=== PATIENT | female | born 1960 | race African-American/Black ===

== ENCOUNTER 2017-07-24 23:06 | Observation (INO) | payer OTHER ==
[~2017-07-24] VITALS: Ht 165.1 cm; Wt 120.0 kg
[~2017-07-24 23:06] MED LIST: Z.0.NO CURRENT MEDS
[2017-07-24 23:10] VITALS: BP_SYST 127; BP_SYST 150; BP_DIAS 66; PULSE 74; PULSE 82; RESP 18; RESP 21; TEMP 98.4; O2SAT 93; O2SAT 97
[2017-07-24] MEDS ORDERED: SODIUM CHLOR 0.9% 1000 ML INJ 1,000 ML IV ONE (23:31)
[2017-07-24] MEDS ORDERED: SODIUM CHLORIDE 0.9% FLUSH 10 ML FLUSH IVF PRN (23:45)
[2017-07-24 23:49] LABS: BLOOD, URINE NEG (NEG); COMMENT (UR) CULT NOT INDICATED; CULTURE IF INDICATED CULT NOT INDICATED; GLUCOSE,URINE NEG (NEG); KETONE, URINE NEG (NEG); MUCUS URINE FEW /lpf (OCC); NITRITE,URINE NEG (NEG); PH, URINE 5.5 (5.0-8.5); URINE COLOR YELLOW (YELLW/STRAW)
[2017-07-24 23:52] LABS: AUTOMATED NEUTROPHIL # 7.3 TH/MM3 (1.8-7.7); BASOPHIL # 0.1 TH/MM3 (0-0.2); BASOPHIL % 0.6 % (0.0-2.0); EOSINOPHIL % 0.4 % (0.0-4.0); HEMATOCRIT 40.1 % (35.0-46.0); HEMO FLAGS DIFF FINAL; LYMPH % 27.9 % (9.0-44.0); LYMPHOCYTE # 3.2 TH/MM3 (1.0-4.8); MEAN CELL VOLUME 86.7 FL (80.0-100.0); MEAN CORPUSCULAR HEMOGLOBIN 28.6 PG (27.0-34.0); MONO % 6.9 % (0.0-8.0); NEUT % 64.2 % (16.0-70.0); PLATELET COUNT 219 TH/MM3 (150-450); RED BLOOD COUNT 4.62 MIL/MM3 (4.00-5.30); RED CELL DISTRIBUTION WIDTH 14.6 % (11.6-17.2); WHITE BLOOD COUNT 11.4 TH/MM3 (4.0-11.0)
[2017-07-24 23:58] LABS: APTT (PATIENT) 28.7 SEC (24.3-30.1); PROTHROMBIN TIME - PATIENT 11.1 SEC (9.8-11.6)
[2017-07-25] VITALS (11 sets, daily range): BP systolic 112–136; BP diastolic 56–78; PULSE 71–84; RESP 16–24; TEMP 97.5–99; O2SAT 94–99
[2017-07-25 00:14] LABS: ALKALINE PHOSPHATASE 69 U/L (45-117); ALT (GPT) 18 U/L (10-53); ANION GAP 9 MEQ/L (5-15); AST (GOT) 13 U/L (15-37); BLOOD UREA NITROGEN 10 MG/DL (7-18); CHLORIDE 106 MEQ/L (98-107); GLOMERULAR FILTRATION RATE 100 ML/MIN (>89); POTASSIUM 3.8 MEQ/L (3.5-5.1); SODIUM (NA) 141 MEQ/L (136-145); TOTAL BILIRUBIN ADULT 0.4 MG/DL (0.2-1.0)
[2017-07-25 00:15] LABS: ACETAMINOPHEN LESS THAN 2.0 MCG/ML (10.0-30.0); ALCOHOL LESS THAN 3 MG/DL (0-5)
--- NOTE | 2017-07-25 00:17 | RADRPT ---
EXAM DATE/TIME: 07/24/2017 23:44 [facility] COMPARISON: CHEST SINGLE AP, December 31, 2012, 16:56. INDICATIONS : Possible overdose. MEDICAL HISTORY : Unknown SURGICAL HISTORY : Unknown ENCOUNTER: Initial ACUITY: 1 day PAIN SCORE: Non-responsive. LOCATION: Bilateral chest FINDINGS: A single view of the chest demonstrates the lungs to be symmetrically aerated without evidence of mas s, infiltrate or effusion. The cardiomediastinal contours are unremarkable. Osseous structures are intact. CONCLUSION: No acute disease. Ernesto Hairston MD on July 25, 2017 at 0:15 Board Certified Radiologist. This report was verified electronically.
--- NOTE | 2017-07-25 00:19 | PD ---
HPI Chief Complaint: OD/ Ingestion Time Seen by Provider: 23:25 Travel History International Travel<30 days: No Contact w/Intl Traveler<30days: No Traveled to known affect area: No History of Present Illness HPI The patient is a 57 year old female who presents to the [facility] emergency department with a history of being found by her family member with a decreased level of consciousness prior to arrival. The patient was noted to have an empty bottle of escitalopram with her. This prescription was filled on July 18. They were 10 mg tablets. The patient initially on ambulance services arrival was noted to have a GCS of 7. The patient's mentation en route to this facility seem to be improving. She was following commands. She had a raspy quality to her voice and seemed to have difficulty speaking. The patient on arrival admits to taking the bottle of medication. She is not saying why at this time. When family arrived they report that she has attempted suicide recently by overdosing on Xanax. They report that she went to [facility]. He reports that she has a long-standing history of depression. Unfortunately, review of systems was limited in this patient as she was unwilling or unable to do further answers regarding review of systems. [facility] Past Medical History Narrative Medical The patient's past medical history is significant for arthritis, anxiety and depression, history of diabetes mellitus, acid reflux. Arthritis: Yes Blood Disorders: No Anxiety: Yes Depression: Yes Cancer: No Cardiovascular Problems: Yes Chest Pain: Yes Diabetes: Yes Diminished Hearing: No Endocrine: Yes Gastrointestinal Disorders: Yes GERD: Yes Genitourinary: No Immune Disorder: No Musculoskeletal: No Neurologic: No Psychiatric: No Respiratory: No Past Surgical History Narrative Surgical The patient's past surgical history is significant for cholecystectomy, hysterectomy. Abdominal Surgery: Yes Cardiac Surgery: No Cholecystectomy: Yes Ear Surgery: No Endocrine Surgery: No Eye Surgery: No Genitourinary Surgery: No Gynecologic Surgery: Yes (HYSTERECTOMY 2004) Hysterectomy: Yes Oral Surgery: No Pacemaker: No Thoracic Surgery: No Social History Alcohol Use: No Tobacco Use: No Substance Use: No Allergies-Medications (Allergen,Severity, Reaction): Coded Allergies: Sulfa (Sulfonamide Antibiotics) (Unverified Allergy, Severe, HIVES, ) Reported Meds & Prescriptions Reported Meds & Active Scripts Active Reported No Current Meds (Miscellaneous Medication) [facility] [place] ROS Limitations: Poor Historian Except as stated in HPI: all other systems reviewed are Neg General / Constitutional: No: Fever Eyes: No: Visual changes HENT: No: Headaches Cardiovascular: No: Chest Pain or Discomfort Respiratory: No: Shortness of Breath Gastrointestinal: Positive: Nausea, No: Vomiting, Diarrhea, Abdominal Pain Genitourinary: No: Dysuria Musculoskeletal: No: Pain Skin: No Rash Neurologic: No: Weakness Psychiatric: Positive: Depression, Suicidal Ideations, Mood Disorder, No: Homicidal Ideation Endocrine: No: Polydipsia Hematologic/Lymphatic: No: Easy Bruising Physical Exam Narrative General: The patient is a well-developed well-nourished female in no acute distress. Head and Neck exam: Head is normocephalic atraumatic. Eyes: EOMI, pupils are equal round and reactive to light. Nose: Midline septum with pink mucous membranes Mouth: Dentition unremarkable. Moist mucus membranes. Posterior oropharynx is not erythematous. No tonsillar hypertrophy. Uvula midline. Airway patent. Neck: No palpable lymphadenopathy. No nuchal rigidity. No thyromegaly. Cardiovascular: Regular rate and rhythm without murmurs, gallops, or rubs. Lungs: Clear to auscultation bilaterally. No wheezes, rhonchi, or rales. Abdomen: Soft, without tenderness to palpation in all 4 quadrants of the abdomen. No guarding, rebound, or rigidity. Normal bowel sounds are audible. No tenderness on palpation of McBurney's point. Negative Webb's sign. Extremities: No clubbing, cyanosis, or edema. 2+ pulses in all 4 extremities. No calf tenderness on palpation. Back: No spinous process tenderness to palpation. No costovertebral angle tenderness to palpation. Neurologic Exam: Cranial nerves 2-12 were intact on exam. Strength is 5/5 in all 4 extremities. No sensory deficits noted. The patient has a slightly hoarse quality to her voice. The patient is able to speak. The patient is oriented to person, however she does not answer questions regarding place, time, or situation. Skin Exam: No rash noted. Intact skin that is warm and dry. Data Data Last Documented VS Vital Signs Date Time Temp Pulse Resp B/P (MAP) Pulse Ox O2 Delivery O2 Flow Rate FiO2 07/25/17 00:00 78 20 115/73 (87) 99 Room Air 07/24/17 23:10 98.4 Orders Orders Electrocardiogram (07/24/17 23:31) Complete Blood Count With Diff (07/24/17 23:31) Comprehensive Metabolic Panel (07/24/17 23:) Prothrombin Time / Inr (Pt) (07/24/17:31) Act Partial Throm Time (Ptt) (07/24/17 23:31) Osmolality,Serum (07/24/17:) Osmolality, Urine (07/24/17:) Urinalysis - C+S If Indicated (07/24/17 23:31) Chest, Single Ap (07/24/17 23:31) Ct Brain W/O Iv Contrast(Rout) (07/24/17 23:31) Iv Access Insert/Monitor (07/24/17:31) Ecg Monitoring (07/24/17:31) Oximetry (07/24/17 23:31) Sodium Chloride 0.9% Flush (Ns Flush) (07/24/17 23:45) Sodium Chlor 0.9% 1000 Ml Inj (Ns 1000 M (07/24/17 23:31) Call Poison Control (07/24/17 23:31) Drug Screen, Random Urine (07/24/17 23:31) Alcohol (Ethanol) (07/24/17 23:31) Salicylates (Aspirin) (07/24/17 23:31) Tylenol (Acetaminophen) (07/24/17 23:31) Ed Urine Pregnancytest Poc (07/24/17 23:31) Admit Order (Ed Use Only) (07/25/17 01:22) Consult Psychiatry (07/25/17 ) Ondansetron Inj (Zofran Inj) (07/25/17 01:30) Labs Laboratory Tests Test 07/24/17 23:20 White Blood Count 11.4 TH/MM3 Red Blood Count 4.62 MIL/MM3 Hemoglobin 13.2 GM/DL Hematocrit 40.1 % Mean Corpuscular Volume 86.7 FL Mean Corpuscular Hemoglobin 28.6 PG Mean Corpuscular Hemoglobin Concent 33.0 % Red Cell Distribution Width 14.6 % Platelet Count 219 TH/MM3 Mean Platelet Volume 11.0 FL Neutrophils (%) (Auto) 64.2 % Lymphocytes (%) (Auto) 27.9 % Monocytes (%) (Auto) 6.9 % Eosinophils (%) (Auto) 0.4 % Basophils (%) (Auto) 0.6 % Neutrophils # (Auto) 7.3 TH/MM3 Lymphocytes # (Auto) 3.2 TH/MM3 Monocytes # (Auto) 0.8 TH/MM3 Eosinophils # (Auto) 0.0 TH/MM3 Basophils # (Auto) 0.1 TH/MM3 CBC Comment DIFF FINAL Differential Comment Prothrombin Time 11.1 SEC Prothromb Time International Ratio 1.0 RATIO Activated Partial Thromboplast Time 28.7 SEC Urine Color YELLOW Urine Turbidity CLEAR Urine pH 5.5 Urine Specific [place] 1.015 Urine Protein NEG mg/dL Urine Glucose (UA) NEG mg/dL Urine Ketones NEG mg/dL Urine Occult Blood NEG Urine Nitrite NEG Urine Bilirubin NEG Urine Urobilinogen LESS THAN 2.0 MG/DL Urine Leukocyte Esterase NEG Urine RBC 1 /hpf Urine WBC 1 /hpf Urine Mucus FEW /lpf Microscopic Urinalysis Comment CULT NOT INDICATED Urine Osmolality 460 MOSM/KG Blood Urea Nitrogen 10 MG/DL Creatinine 0.73 MG/DL Random Glucose 112 MG/DL Total Protein 7.4 GM/DL Albumin 3.2 GM/DL Calcium Level 8.4 MG/DL Alkaline Phosphatase 69 U/L Aspartate Amino Transf (AST/SGOT) 13 U/L Alanine Aminotransferase (ALT/SGPT) 18 U/L Total Bilirubin 0.4 MG/DL Sodium Level 141 MEQ/L Potassium Level 3.8 MEQ/L Chloride Level 106 MEQ/L Carbon Dioxide Level 26.0 MEQ/L Anion Gap 9 MEQ/L Estimat Glomerular Filtration Rate 100 ML/MIN Serum Osmolality 271 MOSM/KG Salicylates Level LESS THAN 1.7 MG/DL Urine Opiates Screen NEG Acetaminophen Level LESS THAN 2.0 MCG/ML Urine Barbiturates Screen NEG Urine Amphetamines Screen NEG Urine Benzodiazepines Screen NEG Urine Cocaine Screen NEG Urine Cannabinoids Screen NEG Ethyl Alcohol Level LESS THAN 3 MG/DL MDM Medical Decision Making Medical Screen Exam Complete: Yes Emergency Medical Condition: Yes Medical Record Reviewed: Yes Interpretation(s) Last Impressions Head CT 07/24/172330 Signed Impressions: Service Date/Time: Tuesday, July 25, 2017 00:32 - CONCLUSION: Normal examination. Ernesto Hairston MD Chest X-Ray 07/24/172330 Signed Impressions: Service Date/Time: Monday, July 24, 2017 23:44 - CONCLUSION: No acute disease. Ernesto Hairston MD Differential Diagnosis Suicidal gesture, versus suicide attempt Narrative Course During the course of the patients emergency department visit, the patients history, examination, and differential diagnosis were reviewed with the patient. The patient had IV access obtained and blood work sent for analysis. The patient was placed on a quality assurance monitor with oximetry and blood pressure monitoring. An ECG was done on arrival. The patient's ECG reveals a sinus rhythm heart rate of 81, left bundle branch block which is new compared to an ECG done at this facility last on December 31, 2012. The patient's case was discussed with poison control who recommended continued telemetry, observation for any further cardiac abnormalities. The patient was placed under a Roberts act by me. The patient was initially provided normal saline 1 L IV fluid bolus, Zofran 4 mg IV. The patients laboratory studies were reviewed and remarkable for a white count of 11.4, hemoglobin 13.2, platelets 219 with a normal differential. CMP is remarkable for glucose of 112, calcium 8.4, AST 13, albumin 3.2, serum osmolality is 271, PT PTT within normal limits, urine drug screen is negative, salicylate less than 1.7, acetaminophen less than 2, alcohol level less than 3, urinalysis is unremarkable, urinalysis will already is 460 Radiology studies were reviewed and remarkable for a chest x-ray that shows no acute cardiopulmonary disease, CT scan of the brain shows no acute abnormality. The patients results were discussed with the patient, including the plan of care. I explained that further testing and/ or monitoring is indicated based on the patients history, examination, and/ or laboratory findings. Therefore, I recommended admission for additional evaluation. The patient expressed understanding and was agreeable with this plan. The patient was admitted to the hospital in stable condition and sent to a bed under the care of [facility] service. Physician Communication Physician Communication The patient's case is discussed with Dr. Leigh who did agree to admit the patient for further evaluation and treatment at this time. Diagnosis Primary Impression: Suicide attempt Additional Impressions: Antidepressant overdose Qualified Codes: T43.202A - Poisoning by unspecified antidepressants, intentional self-harm, initial encounter Left bundle branch block Admitting Information Admitting Physician Requests: Observation Senait Wilson MD Jul 25, 2017 00:19
--- NOTE | 2017-07-25 00:44 | RADRPT ---
EXAM DATE/TIME: 07/25/2017 00:32 [facility] COMPARISON: No previous studies available for comparison. INDICATIONS : Altered mental status. Possible overdose. RADIATION DOSE: 30.96 CTDIvol (mGy) MEDICAL HISTORY : Cardiovascular disease. Diabetes. SURGICAL HISTORY : Hysterectomy. ENCOUNTER: Initial ACUITY: 1 day PAIN SCALE: Non-responsive LOCATION: cranial TECHNIQUE: Multiple contiguous axial images were obtained of the head. Using automated exposure control and adj ustment of the mA and/or kV according to patient size, radiation dose was kept as low as reasonably a chievable to obtain optimal diagnostic quality images. DICOM format image data is available electro nically for review and comparison. FINDINGS: CEREBRUM: The ventricles are normal for age. No evidence of midline shift, mass lesion, hemorrhage or acute in farction. No extra-axial fluid collections are seen. POSTERIOR FOSSA: The cerebellum and brainstem are intact. The 4th ventricle is midline. The cerebellopontine angle i s unremarkable. EXTRACRANIAL: The visualized portion of the orbits is intact. SKULL: The calvaria is intact. No evidence of skull fracture. CONCLUSION: Normal examination. Ernesto Hairston MD on July 25, 2017 at 0:42 Board Certified Radiologist. This report was verified electronically.
[2017-07-25] MEDS ORDERED: LACTULOSE SYRUP 20 GM/30 ML CUP PO PRN (01:30)
[2017-07-25] MEDS ORDERED: BISACODYL 10 MG SUPP RECTAL PRN (01:30)
[2017-07-25] MEDS ORDERED: SENNOSIDES 8.6 MG TAB PO PRN (01:30)
[2017-07-25] MEDS ORDERED: ONDANSETRON HCL 4 MG/2 ML VIAL IVP PRN (01:30)
[2017-07-25] MEDS ORDERED: SODIUM CHLORIDE 0.9% FLUSH 10 ML FLUSH IV FLUSH PRN (01:30)
[2017-07-25] MEDS ORDERED: ACETAMINOPHEN 325 MG TAB PO PRN (01:30)
[2017-07-25] MEDS ORDERED: MAGNESIUM HYDROXIDE SUSP 30 ML CUP PO PRN (01:30)
[2017-07-25] MEDS ORDERED: ONDANSETRON HCL 4 MG/2 ML VIAL IV PUSH ONE (01:30)
[2017-07-25] MEDS: SODIUM CHLOR 0.9% 1000 ML INJ 1,000 ML IV SCH ×3 (01:40→20:21)
--- NOTE | 2017-07-25 04:25 | HHI.HP ---
HPI Service [facility] Primary Care Physician Unknown Admission Diagnosis Intentional overdose of escitalopram Diagnoses: (1) Overdose Diagnosis: Principal (2) Suicide attempt Diagnosis: Principal (3) Abnormal EKG Diagnosis: Principal (4) Leukocytosis Diagnosis: Principal (5) HTN (hypertension) Diagnosis: Principal Travel History International Travel<30 Days: No Contact w/Intl Traveler <30 Da: No Traveled to Known Affected Are: No History of Present Illness This is a 57-year-old female w/ a PMH of Anxiety, Depression and GERD who was brought to the ER after intentional overdose w/ Lexapro in apparent Suicide Attempt, currently under Roberts Act. Pt w/ prescription for Lexapro 10mg filled on Jul 18, found w/ empty bottle. Lethargic on arrival, however mental status now back to baseline. BP 150/66, HR 82, O2 sat 99% on RA, Afebrile. WBC 11.4. Chemistry essentially unremarkable. INR 1.0. UA negative. Urine Drug Screen negative. Alcohol negative. CXR with no acute findings. CT Head normal. EKG with LBBB, pt reports h/o abnormal EKG however no recent EKG to compare to. Poison Control contacted by ER physician, recommended admission for Observation in light of abnormal EKG. No c/o chest pain. Review of Systems Except as stated in HPI: all other systems reviewed are Neg ROS: 14 point review of systems otherwise negative. Past Family Social History Past Medical History PMH: Anxiety, Depression and GERD Past Surgical History PAST SURGICAL HISTORY: Cholecystectomy, Hysterectomy Allergies: Coded Allergies: Sulfa (Sulfonamide Antibiotics) (Unverified Allergy, Severe, HIVES, ) Family History PAST FAMILY HISTORY: Reviewed. No h/o DM or CAD Social History PAST SOCIAL HISTORY: Negative for alcohol, tobacco or drugs. Physical Exam Vital Signs Vital Signs Date Time Temp Pulse Resp B/P (MAP) Pulse Ox O2 Delivery O2 Flow Rate FiO2 07/25/17 02:37 98.6 76 18 120/56 (77) 100 07/25/17 00:00 78 20 115/73 (87) 99 Room Air 07/24/17 23:10 98.4 82 18 150/66 (94) 97 07/24/17 23:10 74 21 127/66 (86) 93 Room Air 07/24/17 23:10 99 Room Air Physical Exam PE: GENERAL: Middle-aged white female in no acute distress. Family at bedside. HEENT: PERRLA, EOMI. No scleral icterus or conjunctival pallor. No lid lag or facial droop. CARDIOVASCULAR: Regular rate and rhythm. No obvious murmurs to auscultation. No chest tenderness to palpation. RESPIRATORY: No obvious rhonchi or wheezing. Clear to auscultation. Breath sounds equal bilaterally. GASTROINTESTINAL: Abdomen soft, non-tender, nondistended. BS normal. MUSCULOSKELETAL: Extremities without clubbing, cyanosis, or edema. No obvious deformities. NEUROLOGICAL: Awake, alert and oriented x4, flat affect. No focal neurologic deficits. Moving both upper and lower extremities spontaneously. Laboratory Laboratory Tests Test 07/24/17 23:20 White Blood Count 11.4 Red Blood Count 4.62 Hemoglobin 13.2 Hematocrit 40.1 Mean Corpuscular Volume 86.7 Mean Corpuscular Hemoglobin 28.6 Mean Corpuscular Hemoglobin Concent 33.0 Red Cell Distribution Width 14.6 Platelet Count 219 Mean Platelet Volume 11.0 Neutrophils (%) (Auto) 64.2 Lymphocytes (%) (Auto) 27.9 Monocytes (%) (Auto) 6.9 Eosinophils (%) (Auto) 0.4 Basophils (%) (Auto) 0.6 Neutrophils # (Auto) 7.3 Lymphocytes # (Auto) 3.2 Monocytes # (Auto) 0.8 Eosinophils # (Auto) 0.0 Basophils # (Auto) 0.1 CBC Comment DIFF FINAL Differential Comment Prothrombin Time 11.1 Prothromb Time International Ratio 1.0 Activated Partial Thromboplast Time 28.7 Urine Color YELLOW Urine Turbidity CLEAR Urine pH 5.5 Urine Specific [place] 1.015 Urine Protein NEG Urine Glucose (UA) NEG Urine Ketones NEG Urine Occult Blood NEG Urine Nitrite NEG Urine Bilirubin NEG Urine Urobilinogen LESS THAN 2.0 Urine Leukocyte Esterase NEG Urine RBC 1 Urine WBC 1 Urine Mucus FEW Microscopic Urinalysis Comment CULT NOT INDICATED Urine Osmolality 460 Blood Urea Nitrogen 10 Creatinine 0.73 Random Glucose 112 Total Protein 7.4 Albumin 3.2 Calcium Level 8.4 Alkaline Phosphatase 69 Aspartate Amino Transf (AST/SGOT) 13 Alanine Aminotransferase (ALT/SGPT) 18 Total Bilirubin 0.4 Sodium Level 141 Potassium Level 3.8 Chloride Level 106 Carbon Dioxide Level 26.0 Anion Gap 9 Estimat Glomerular Filtration Rate 100 Serum Osmolality 271 Salicylates Level LESS THAN 1.7 Urine Opiates Screen NEG Acetaminophen Level LESS THAN 2.0 Urine Barbiturates Screen NEG Urine Amphetamines Screen NEG Urine Benzodiazepines Screen NEG Urine Cocaine Screen NEG Urine Cannabinoids Screen NEG Ethyl Alcohol Level LESS THAN 3 Result Diagram: 07/24/17231907/24/172319 Caprini VTE Risk Assessment Caprini VTE Risk Assessment: No/Low Risk (score <= 1) Caprini Risk Assessment Model Point Value = 1 Point Value = 2 Point Value = 3 Point Value = 5 Age 41-60 Minor surgery BMI > 25 kg/m2 Swollen legs Varicose veins or History of unexplained or recurrent spontaneous Oral contraceptives or hormone replacement Sepsis (< 1 month) Serious lung disease, including pneumonia (< 1 month) Abnormal pulmonary function Acute myocardial infarction Congestive heart failure (< 1 month) History of inflammatory bowel disease Medical patient at bed rest Age 61-74 Arthroscopic surgery Major open surgery (> 45 min) Laparoscopic surgery (> 45 min) Malignancy Confined to bed (> 72 hours) Immobilizing plaster cast Central venous access Age >= 75 History of VTE Family history of VTE Factor V Leiden Prothrombin [id number] Lupus anticoagulant Anticardiolipin antibodies Elevated serum homocysteine Heparin-induced thrombocytopenia Other congenital or acquired thrombophilia Stroke (< 1 month) Elective arthroplasty Hip, pelvis, or leg fracture Acute spinal cord injury (< 1 month) Prophylaxis Regimen Total Risk Factor Score Risk Level Prophylaxis Regimen 0-1 Low Early ambulation 2 Moderate Order ONE of the following: *Sequential Compression Device (SCD) *Heparin 5000 units SQ BID 3-4 Higher Order ONE of the following medications: *Heparin 5000 units SQ TID *Enoxaparin/Lovenox 40 mg SQ daily (WT < 150 kg, CrCl > 30 mL/min) *Enoxaparin/Lovenox 30 mg SQ daily (WT < 150 kg, CrCl > 10-29 mL/min) *Enoxaparin/Lovenox 30 mg SQ BID (WT < 150 kg, CrCl > 30 mL/min) AND/OR *Sequential Compression Device (SCD) 5 or more Highest Order ONE of the following medications: *Heparin 5000 units SQ TID (Preferred with Epidurals) *Enoxaparin/Lovenox 40 mg SQ daily (WT < 150 kg, CrCl > 30 mL/min) *Enoxaparin/Lovenox 30 mg SQ daily (WT < 150 kg, CrCl > 10-29 mL/min) *Enoxaparin/Lovenox 30 mg SQ BID (WT < 150 kg, CrCl > 30 mL/min) AND *Sequential Compression Device (SCD) Assessment and Plan Problem List: (1) Overdose ICD Code: T50.901A - Poisoning by unspecified drugs, medicaments and biological substances, accidental (unintentional), initial encounter (2) Suicide attempt ICD Code: T14.91XA - Suicide attempt, initial encounter (3) Abnormal EKG ICD Code: R94.31 - Abnormal electrocardiogram [ECG] [EKG] (4) Leukocytosis ICD Code: D72.829 - Elevated white blood cell count, unspecified (5) HTN (hypertension) ICD Code: I10 - Essential (primary) hypertension Assessment and Plan A/P: 1. Overdose: Intentional Overdose on Lexapro, quantity unknown, found w/ empty bottle of Lexapro 10mg filled on 07/18/17. Lethargic on arrival, mental status now back to baseline. CT Head w/ no acute findings, images reviewed by me. Admit for Observation, telemetry. 2. Suicide Attempt: overdose on Lexapro in suicide attempt, currently under Roberts Act. Sitter. Consult Psych for further eval. 3. Abnormal EKG: EKG w/ LBBB, pt reports h/o abnormal EKG however no recent EKG to compare w/ similar findings. Poison Control recommending admission for observation, telemetry. Repeat EKG. 4. Leukocytosis: WBC 11.4, no signs of infection. CXR w/ no acute findings, images reviewed by me. U/a negative. Will repeat in am. 5. HTN: BP 150's on arrival, currently 120's. Monitor BP. 6. DVT Prophylaxis: SCD/Teds. 7. Social work for d/c planning as needed. 8. Case discussed w/ ER physician at length. Joann Leigh MD Jul 25, 2017 04:25
[2017-07-25] MEDS: SODIUM CHLORIDE 0.9% FLUSH 10 ML FLUSH IV FLUSH SCH ×2 (10:33→20:21)
[2017-07-25] MEDS: DOCUSATE SODIUM 50 MG/SENNA 8.6 MG TAB PO SCH ×2 (10:33→20:21)
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
--- NOTE | 2017-07-25 12:49 | EKG ---
Date Performed: 07/25/2017 Time Performed: 02:07:26 PTAGE: 57 years EKG: Sinus rhythm LEFT BUNDLE BRANCH BLOCK ABNORMAL ECG Compared to prior tracing no significant change PREVIOUS TRACING : 12/31/2012 16.08 DOCTOR: Tommy Mccann Interpretating Date/Time 07/25/2017 12:47:38
[2017-07-25 15:58] LABS: AUTOMATED NEUTROPHIL # 6.5 TH/MM3 (1.8-7.7); BASOPHIL % 0.4 % (0.0-2.0); EOSINOPHIL % 0.2 % (0.0-4.0); HEMATOCRIT 37.7 % (35.0-46.0); HEMO FLAGS DIFF FINAL; LYMPH % 23.6 % (9.0-44.0); LYMPHOCYTE # 2.2 TH/MM3 (1.0-4.8); MEAN CELL VOLUME 87.8 FL (80.0-100.0); MEAN CORPUSCULAR HEMOGLOBIN 28.6 PG (27.0-34.0); MEAN CORPUSCULAR HGB CONC 32.6 % (32.0-36.0); MONO % 6.6 % (0.0-8.0); NEUT % 69.2 % (16.0-70.0); PLATELET COUNT 203 TH/MM3 (150-450); RED BLOOD COUNT 4.29 MIL/MM3 (4.00-5.30); RED CELL DISTRIBUTION WIDTH 14.7 % (11.6-17.2); WHITE BLOOD COUNT 9.4 TH/MM3 (4.0-11.0)
--- NOTE | 2017-07-25 16:12 | EKG ---
Date Performed: 07/24/2017 Time Performed: 23:13:01 PTAGE: 57 years EKG: Sinus rhythm LEFT BUNDLE BRANCH BLOCK Compared to previous tracing Left bundle branch block is new ABNORMAL ECG PREVIOUS TRACING : 12/31/2012 @ 1608 DOCTOR: Tommy Mccann Interpretating Date/Time 07/25/2017 16:11:14
[2017-07-25 16:18] LABS: ALKALINE PHOSPHATASE 63 U/L (45-117); ALT (GPT) 20 U/L (10-53); ANION GAP 7 MEQ/L (5-15); AST (GOT) 13 U/L (15-37); BICARBONATE 28.5 MEQ/L (21.0-32.0); BLOOD UREA NITROGEN 8 MG/DL (7-18); CHLORIDE 107 MEQ/L (98-107); GLOMERULAR FILTRATION RATE 103 ML/MIN (>89); POTASSIUM 3.8 MEQ/L (3.5-5.1); SODIUM (NA) 142 MEQ/L (136-145); TOTAL BILIRUBIN ADULT 0.2 MG/DL (0.2-1.0)
[2017-07-26] VITALS (7 sets, daily range): BP systolic 108–138; BP diastolic 59–79; PULSE 69–80; RESP 18–24; TEMP 97.8–98.8; O2SAT 94–96
[2017-07-26] MEDS: SODIUM CHLOR 0.9% 1000 ML INJ 1,000 ML IV SCH (06:36)
--- NOTE | 2017-07-26 08:07 | HHI.PR ---
Subjective Remarks Follow-up for overdose. Sitter at bedside. The patient has no acute complaints today. She denies any chest pain, shortness of breath. She's been out of bed to use the commode and denies any lightheadedness or dizziness. She is oriented to person, hospital, year and month. Objective Vitals Vital Signs Date Time Temp Pulse Resp B/P (MAP) Pulse Ox O2 Delivery O2 Flow Rate FiO2 07/26/17 07:14 97.8 70 24 133/79 (97) 96 07/26/17 04:09 98.2 72 18 131/62 (85) 95 07/26/17 03:55 69 07/26/17 00:30 98.5 72 18 138/65 (89) 94 07/26/17 00:09 72 07/25/17 20:15 71 07/25/17 19:10 97.9 84 18 117/65 (82) 96 07/25/17 15:30 99.0 77 22 132/71 (91) 97 07/25/17 15:10 77 07/25/17 12:05 97.5 78 16 136/78 (97) 94 I/O 07/25/17 07/25/17 07/25/17 07/26/17 07/26/17 07/26/17 07:00 15:00 23:00 07:00 15:00 23:00 Intake Total 1000 ml Output Total 200 ml 300 ml Balance 1000 ml -200 ml -300 ml Intake IV Total 1000 ml Output Urine Total 200 ml 300 ml # Voids 6 Result Diagram: 07/25/17 1455 07/25/17 1455 Imaging Last Impressions Head CT 07/24/172330 Signed Impressions: Service Date/Time: Tuesday, July 25, 2017 00:32 - CONCLUSION: Normal examination. Ernesto Hairston MD Chest X-Ray 07/24/172330 Signed Impressions: Service Date/Time: Monday, July 24, 2017 23:44 - CONCLUSION: No acute disease. Ernesto Hairston MD Objective Remarks GENERAL: Well-developed well-nourished. In no acute distress. Oriented 3. SKIN: Warm and dry. No lesions noted. HEENT: Normocephalic. Pupils equal and round. Mucous membranes pink and moist. CARDIOVASCULAR: Regular rate and rhythm. No murmur appreciated. RESPIRATORY: No accessory muscle use. Clear to auscultation. Breath sounds equal bilaterally. GASTROINTESTINAL: Abdomen soft, non-tender, nondistended. Bowel sounds x4. MUSCULOSKELETAL: No obvious deformities. No clubbing or cyanosis. No edema. NEUROLOGICAL: Awake and alert. No focal neurological deficits. Moves upper and lower extremities spontaneously. Normal speech. PSYCHIATRIC: Guarded mood and affect; insight and judgment normal. A/P Problem List: (1) Overdose ICD Code: T50.901A - Poisoning by unspecified drugs, medicaments and biological substances, accidental (unintentional), initial encounter Status: Acute (2) Suicide attempt ICD Code: T14.91XA - Suicide attempt, initial encounter Status: Acute (3) Abnormal EKG ICD Code: R94.31 - Abnormal electrocardiogram [ECG] [EKG] Status: Chronic (4) Leukocytosis ICD Code: D72.829 - Elevated white blood cell count, unspecified Status: Resolved (5) HTN (hypertension) ICD Code: I10 - Essential (primary) hypertension Status: Acute Assessment and Plan 57-year-old female w/ a PMH of Anxiety, Depression and GERD who was brought to the ER after intentional overdose w/ Lexapro in apparent Suicide Attempt, currently under Roberts Act Suicidal overdose: Intentional Overdose on Lexapro, quantity unknown, found w/ empty bottle of Lexapro 10mg filled on 07/18/17. Lethargic on arrival, mental status now back to baseline. CT Head w/ no acute findings. Labs and vitals stable. Psychiatry consulted and recommended inpatient psychiatry when medically cleared. Poison control was contacted from the ED and recommended overnight monitoring on telemetry, the patient has been stable greater than 24 hours and is medically cleared for discharge to psychiatry. Abnormal EKG: EKG w/ LBBB, pt reports h/o abnormal EKG however no recent EKG to compare w/ similar findings. Repeat EKG 2 shows continued left bundle branch block with no change. Asymptomatic. Outpatient cardiology follow-up. Leukocytosis: WBC 11.4, likely reactive from OD, now within normal limits at 9.4. No signs of infection. CXR w/ no acute findings. U/a negative. Resolved. Elevated blood pressure: BP mildly elevated upon arrival, likely reactive. BP has been controlled off of medications here. Improved. DVT Prophylaxis: SCD/Teds. Discussed with Dr. Mendoza who has also evaluated the patient. Discharge Planning Psychiatry consulted and recommended transferring to inpatient psychiatry when medically clear. Patient is medically clear for discharge to inpatient psychiatry. Problem Qualifiers (1) Overdose: Qualified Codes: T50.902D - Poisoning by unspecified drugs, medicaments and biological substances, intentional self-harm, subsequent encounter (2) HTN (hypertension): Qualified Codes: I10 - Essential (primary) hypertension Matthew Patel Jul 26, 2017 08:07
[2017-07-26] MEDS: SODIUM CHLORIDE 0.9% FLUSH 10 ML FLUSH IV FLUSH SCH (09:25)
[2017-07-26] MEDS: DOCUSATE SODIUM 50 MG/SENNA 8.6 MG TAB PO SCH (09:25)
[2017-07-26 09:50] LABS: HEMATOCRIT 37.1 % (35.0-46.0); MEAN CORPUSCULAR HGB CONC 33.3 % (32.0-36.0); PLATELET COUNT 199 TH/MM3 (150-450); RED BLOOD COUNT 4.26 MIL/MM3 (4.00-5.30); RED CELL DISTRIBUTION WIDTH 14.8 % (11.6-17.2); REVIEW FLAG FINAL; WHITE BLOOD COUNT 8.2 TH/MM3 (4.0-11.0)
--- NOTE | 2017-07-26 10:09 | EKG ---
Date Performed: 07/26/2017 Time Performed: 06:13:44 PTAGE: 57 years EKG: Sinus rhythm LEFT BUNDLE BRANCH BLOCK ABNORMAL ECG PREVIOUS TRACING : 07/25/2017 02.07 Compared to prior tracing no significant change DOCTOR: Tommy Mccann Interpretating Date/Time 07/26/2017 10:06:24
== END 2017-07-26 15:30 ==
LOC: NEPC 23:06 → NEDA 07-25 01:24 → NEPHCDU 07-25 02:34
PROVIDERS: ADMIT Hospitalist; ATTEND Hospitalist
DX: T43.222A Poisoning by selective serotonin reuptake inhibitors, intentional self-harm, initial encounter (principal); R53.83 Other fatigue; R41.82 Altered mental status, unspecified; I44.7 Left bundle-branch block, unspecified; I10 Essential (primary) hypertension; E11.9 Type 2 diabetes mellitus without complications; R94.31 Abnormal electrocardiogram [ECG] [EKG]; D72.829 Elevated white blood cell count, unspecified; K21.9 Gastro-esophageal reflux disease without esophagitis; F41.9 Anxiety disorder, unspecified; F32.9 Major depressive disorder, single episode, unspecified; M19.90 Unspecified osteoarthritis, unspecified site
CPT/HCPCS: 70450; 71010; 80053; 80307; 81001; 83930; 83935; 84703; 85025; 85027; 85610; 85730; 93005; 96361; 96374; 99285; G0378; J2405; J7030

== ENCOUNTER 2017-07-26 15:55 | Inpatient (IN) | payer MEDICAID, OTHER ==
[~2017-07-26] VITALS: Ht 167.6 cm; Wt 122.8 kg
[2017-07-26] MEDS ORDERED: LORazepam 0.5 MG TAB PO PRN (17:45)
[2017-07-26] MEDS ORDERED: LORazepam 2 MG/ML VIAL IM PRN ×2 (17:45→18:00)
[2017-07-26] MEDS ORDERED: MAGNESIUM HYDROXIDE SUSP 30 ML CUP PO PRN (18:00)
[2017-07-26] MEDS ORDERED: ALUMINUM/MAGNESIUM/SIMETH 30 ML CUP PO PRN (18:00)
[2017-07-26] MEDS ORDERED: LORazepam 1 MG TAB PO PRN (18:00)
[2017-07-26] MEDS ORDERED: ACETAMINOPHEN 325 MG TAB PO PRN (18:00)
[2017-07-26 18:32] VITALS: BP 133/73; PULSE 82; RESP 18; TEMP 98.4; O2SAT 96
[2017-07-26] MEDS ORDERED: diphenhydrAMINE HCL 50 MG CAP PO PRN (21:00)
--- NOTE | 2017-07-27 00:17 | HHI.HP ---
[facility] Primary Care Physician Unknown Admission Diagnosis UNSPECIFIED DEPRESSIVE DISORDER Diagnoses: Travel History International Travel<30 Days: No Contact w/Intl Traveler <30 Da: No Traveled to Known Affected Are: No Past Family Social History Allergies: Coded Allergies: Sulfa (Sulfonamide Antibiotics) (Unverified Allergy, Severe, HIVES, ) Physical Exam Vital Signs Vital Signs Date Time Temp Pulse Resp B/P (MAP) Pulse Ox O2 Delivery O2 Flow Rate FiO2 07/26/17 18:32 98.4 82 18 133/73 (93) 96 Physical Exam GENERAL: This is a well-nourished, well-developed patient, in no apparent distress. SKIN: No rashes, ecchymoses or lesions. Cool and dry. HEAD: Atraumatic. Normocephalic. No temporal or scalp tenderness. EYES: Pupils equal round and reactive. Extraocular motions intact. No scleral icterus. No injection or drainage. ENT: Nose without bleeding, purulent drainage or septal hematoma. Throat without erythema, tonsillar hypertrophy or exudate. Uvula midline. Airway patent. NECK: Trachea midline. No JVD or lymphadenopathy. Supple, nontender, no meningeal signs. CARDIOVASCULAR: Regular rate and rhythm without murmurs, gallops, or rubs. RESPIRATORY: Clear to auscultation. Breath sounds equal bilaterally. No wheezes , rales, or rhonchi. GASTROINTESTINAL: Abdomen soft, non-tender, nondistended. No hepato-splenomegaly , or palpable masses. No guarding. MUSCULOSKELETAL: Extremities without clubbing, cyanosis, or edema. No joint tenderness, effusion, or edema noted. No calf tenderness. Negative Homans sign bilaterally. NEUROLOGICAL: Awake and alert. Cranial nerves II through XII intact. Motor and sensory grossly within normal limits. Five out of 5 muscle strength in all muscle groups. Normal speech. Caprini VTE Risk Assessment Caprini Risk Assessment Model Point Value = 1 Point Value = 2 Point Value = 3 Point Value = 5 Age 41-60 Minor surgery BMI > 25 kg/m2 Swollen legs Varicose veins or History of unexplained or recurrent spontaneous Oral contraceptives or hormone replacement Sepsis (< 1 month) Serious lung disease, including pneumonia (< 1 month) Abnormal pulmonary function Acute myocardial infarction Congestive heart failure (< 1 month) History of inflammatory bowel disease Medical patient at bed rest Age 61-74 Arthroscopic surgery Major open surgery (> 45 min) Laparoscopic surgery (> 45 min) Malignancy Confined to bed (> 72 hours) Immobilizing plaster cast Central venous access Age >= 75 History of VTE Family history of VTE Factor V Leiden Prothrombin [id number] Lupus anticoagulant Anticardiolipin antibodies Elevated serum homocysteine Heparin-induced thrombocytopenia Other congenital or acquired thrombophilia Stroke (< 1 month) Elective arthroplasty Hip, pelvis, or leg fracture Acute spinal cord injury (< 1 month) Prophylaxis Regimen Total Risk Factor Score Risk Level Prophylaxis Regimen 0-1 Low Early ambulation 2 Moderate Order ONE of the following: *Sequential Compression Device (SCD) *Heparin 5000 units SQ BID 3-4 Higher Order ONE of the following medications: *Heparin 5000 units SQ TID *Enoxaparin/Lovenox 40 mg SQ daily (WT < 150 kg, CrCl > 30 mL/min) *Enoxaparin/Lovenox 30 mg SQ daily (WT < 150 kg, CrCl > 10-29 mL/min) *Enoxaparin/Lovenox 30 mg SQ BID (WT < 150 kg, CrCl > 30 mL/min) AND/OR *Sequential Compression Device (SCD) 5 or more Highest Order ONE of the following medications: *Heparin 5000 units SQ TID (Preferred with Epidurals) *Enoxaparin/Lovenox 40 mg SQ daily (WT < 150 kg, CrCl > 30 mL/min) *Enoxaparin/Lovenox 30 mg SQ daily (WT < 150 kg, CrCl > 10-29 mL/min) *Enoxaparin/Lovenox 30 mg SQ BID (WT < 150 kg, CrCl > 30 mL/min) AND *Sequential Compression Device (SCD) Aaron Varela MD Jul 27, 2017 00:17
--- NOTE | 2017-07-27 00:29 | PD.CONS ---
[facility] By Reason for Consult medical management Primary Care Physician Unknown Diagnoses: History of Present Illness admitted to medical service on 07/25/17 after intentional overdose with lexapro 10mg - as ekg was found to have LBBB, without any prior ekg to compared to. was observed overnight, hemodynamically stable, no acute cardiac events evaluated by psychiatrist and transferred to inpatient psychiatry unit yesterday 07/26/17 on my arrival, pt is awake but does not want to answer questions just shook her head to the line of questioning review of records show no significant PMH except anxiety , depression, gerd Review of Systems ROS Limitations: Refused, Poor Historian Past Family Social History Allergies: Coded Allergies: Sulfa (Sulfonamide Antibiotics) (Unverified Allergy, Severe, HIVES, ) Past Medical History per EMR anxiety depression gerd Past Surgical History per EMR cholecystectomy hysterectomy Family History unknown Social History per EMR: no hx of etoh abuse/ drug abuse/ smoking Physical Exam Vital Signs Vital Signs Date Time Temp Pulse Resp B/P (MAP) Pulse Ox O2 Delivery O2 Flow Rate FiO2 07/26/17 18:32 98.4 82 18 133/73 (93) 96 Physical Exam GENERAL: This is a well-nourished, well-developed patient, in no apparent distress. SKIN: unable to examine as pt refused HEAD: Atraumatic. Normocephalic EYES: No scleral icterus. No injection or drainage. ENT: Airway patent. NECK: unable to examine as pt refused CARDIOVASCULAR: unable to examine as pt refused RESPIRATORY: unable to examine as pt refused GASTROINTESTINAL: unable to examine as pt refused MUSCULOSKELETAL: unable to examine as pt refused NEUROLOGICAL: Awake and alert. Motor and sensory grossly within normal limits. NOT talking to me Assessment and Plan Assessment and Plan Impression: intentional suicidal overdose with lexapro on 07/25/17 ekg LBBB - likely old, asymptomatic Plan: inpatient psychiatry treatment of severe depression per psychiatry team not able to talk to her and get a full history from her as she is refusing will re evaluate by medical team in am to get complete hx to make sure no other medical conditions pending Aaron Varela MD Jul 27, 2017 00:29
[2017-07-27] MEDS: REMOVE OLD PATCH T-DERMAL SCH (08:57)
[2017-07-27] MEDS: NICOTINE 21 MG/24 HR PATCH T-DERMAL SCH (08:57)
[2017-07-27] MEDS: LURASIDONE 40 MG TAB PO SCH (10:00)
[2017-07-27] MEDS ORDERED: PILL SPLITTER OTHER PRN (11:45)
--- NOTE | 2017-07-27 14:30 | HHI.HP ---
Provisional Diagnosis Admission Date Jul 26, 2017 at 15:55 [place]. Bipolar disorder, current episode depressed, severe without psychotic features Certification of Person's Competence To Provide Express and Informed Consent I have personally examined Lauren Buck , a person being served at [facility] [[email or web address]] on, Jul 27, 2017 14:21. Express and informed consent means consent voluntarily given in writing, by a competent person, after sufficient explanation and disclosure of the subject matter involved to enable the person to make a knowing and willful decision without any element of force, fraud, deceit, duress, or other form of constraint or coercion. This person is 18 years of age or older, is not now known to be incompetent to consent to treatment with a guardian advocate, and does not have a health care surrogate or proxy currently making medical treatment decisions. I have found this person to be one of the following: [x] Competent to provide express and informed consent, as defined above, for voluntary admission to this facility and is competent to provide express and informed consent for treatment. He/she has the consistent capacity to make well reasoned, willful, and knowing decisions concerning his or her medical or mental health treatment. The person fully and consistently understands the purpose of the admission for examination/placement and is fully capable of personally exercising all rights assured [place] [] Incompetent to provide express and informed consent to voluntary admission, and this is incompetent to provide express and informed consent to treatment. The person must be transferred to involuntary status and a petition for a guardian advocate filed with the Circuit Court. [] Refusing to provide express and informed consent to voluntary admission but is competent to provide express and informed consent for treatment. The person must be discharged or transferred to involuntary status. Form shall be completed within 24 hours of a person's arrival at the receiving facility and filed in the clinical record of each person: 1. Admitted on a voluntary basis 2. Permitted to provide express and informed consent to his/her own treatment 3. Allowed to transfer from involuntary to voluntary status 4. Prior to permitting a person to consent to his or her own treatment after having been previously found incompetent to consent to treatment. History of Present Illness Capacity: Has Capacity Psych Chief Complaint: recent suicide attempt via overdose on Lexapro HPI Patient is a 57 y/o woman, , domicile recently with son , unemployed with a past psychiatric history of depression versus bipolar disorder, no previous psychiatric hospitalizations when recent suicide attempt via overdose who was taken to [facility] after having overdosed on Lexapro after conflict with ex- which she was then transferred to the inpatient psychiatry for further evaluation and management. Patient found lying in hospital bed, superficially cooperative interview. Patient states that she had been living with some people from her anabaptism previously and on and off with her sister and then her son. Patient states that she recalls taking an overdose of Xanax recently and upon discharge did not keep follow-up appointment. Patient states that she recently took several tablets of her Lexapro which she was prescribed after her last medical hospitalization and reports not recalling the events surrounding her overdose and she states waking up in the hospital. Patient states that she did not know what to expect after she overdosed recently and did not know how to feel after she had woken up in the hospital neither reporting regret nor happy to have survived. Patient reports that recently she had been having decreased sleep, appetite, energy, concentration, feeling sad and depressed since June with feelings of helplessness and hopelessness along with suicidal ideations. Patient was able to elaborate on when she started having suicide ideations, intensity and duration and frequency. Patient states that her recent current stressors include financial difficulty and her current unstable living situation. When asked about recent report of patient having had discord with ex- patient denied. Collateral contact: Janusz (son). Psychiatric family history: Denies Past psychiatric history: diagnosis of depression versus bipolar disorder per patient, no previous psychiatric hospitalizations, one recent previous suicide attempt via overdose on Xanax. Previous psychiatric medications: Lexapro prescribed during her last medical hospitalization after her previous suicide attempt via overdose on Xanax. Substance use disorder: Denies Past medical history: Hypertension Allergies: Sulfas Social history: , recently living with son, has 3 children, unemployed, highest education is high school, yazidi: [employer]. Review of Systems Except as stated in HPI: all other systems reviewed are Neg Past Psych History Violence risk - others (6 mos) Low Violence risk - self (6 mos) Elevated risk due to recent suicide attempt via overdose on Xanax and current suicidal attempt via overdose on Lexapro Substance Abuse History Drugs/Alcohol past 12 months Denies Past Family Social History Coded Allergies: Sulfa (Sulfonamide Antibiotics) (Unverified Allergy, Severe, HIVES, ) Discontinued Reported Medications Miscellaneous (No Current Meds) Misc 12/31/12 Current Medications Medications (Trade) Dose Ordered Sig/Brianne Route Start Time Stop Time Status Last Admin (Ativan) 1 mg Q6H PRN PO 07/26/17 18:00 (Ativan Inj) 1 mg Q6H PRN IM 07/26/17 18:00 (Benadryl) 50 mg HS PRN PO 07/26/17 21:00 (Tylenol) 650 mg Q4H PRN PO 07/26/17 18:00 (Milk Of Magnesia Liq) 30 ml DAILY PRN PO 07/26/17 18:00 (Mag-Al Plus Susp Liq) 30 ml Q6H PRN PO 07/26/17 18:00 (Habitrol 21 Mg Patch.24 Hr) 1 patch DAILY T-DERMAL 07/27/17 09:00 Miscellaneous Information 1 DAILY T-DERMAL 07/27/17 09:00 (Latuda) 20 mg DAILY PO 07/27/17 09:45 (Pill Splitter) 1 ea UNSCH PRN OTHER 07/27/17 11:45 Family Psych History Denies Social History Social history: , recently living with son, has 3 children, unemployed, highest education is high school, yazidi: [employer]. Patient's Strengths (min. 2) Verbal and communicative Physical Exam Patient not noted to be in acute distress, no gross motor abnormalities, no tremors or EPS, no noted psychomotor retardation or agitation. Vital Signs Vital Signs Date Time Temp Pulse Resp B/P (MAP) Pulse Ox O2 Delivery O2 Flow Rate FiO2 07/26/17 18:32 98.4 82 18 133/73 (93) 96 Mental Status Examination Appearance: Appropriate Consciousness: Alert Orientation: Person, Place, Date/Time Speech: Unremarkable Language: Adequate Fund of Knowledge: Adequate Attention and Concentration: Adequate Memory: Impaired (events surrounding recent overdose) Mood: Sad Affect: Sad Thought Process & Associations: Linear Thought Content: Appropriate Hallucination Type: None Delusion Type: None Suicidal Ideation: Yes Suicidal Plan: No Suicidal Intention: No Homicidal Ideation: No Homicidal Plan: No Homicidal Intention: No Insight: Poor Judgment: Impulsive Assessment & Plan Problem List: (1) Bipolar disorder, current episode depressed, severe, without psychotic features ICD Codes: F31.4 - Bipolar disorder, current episode depressed, severe, without psychotic features Assessment & Plan Patient is a 57-year-old after my, who carries diagnoses of depression versus bipolar disorder with recent suicide attempt via overdose 1 week ago who presented again to the hospital for overdose on Lexapro in the context of worsening depressive symptoms and psychosocial stressors. Patient agrees to voluntary admission. Patient to start lurasidone 20 mg by mouth daily for bipolar depression. Encourage patient to maintain hygiene, participated in groups and activities while on the unit and maintain good nutrition. Collateral information pending from son. Discharge planning in progress Discharge Planning Unclear with the patient will return back to son's home or sister's home upon psychiatric stabilization. Kike Oro MD Jul 27, 2017 14:30
--- NOTE | 2017-07-27 14:54 | EKG ---
Date Performed: 07/27/2017 Time Performed: 06:54:07 PTAGE: 57 years EKG: Sinus rhythm BORDERLINE RIGHT AXIS DEVIATION LBBB ABNORMAL ECG PREVIOUS TRACING : 07/26/2017 06.13 Compared to prior tracing no significant change DOCTOR: Abrahan Dent Interpretating Date/Time 07/27/2017 14:52:15
--- NOTE | 2017-07-27 16:51 | HHI.PR ---
Subjective Remarks Follow-up for medical management And more extensive interview was done with the patient. Patient stated that she has a history of left bundle branch block she is aware of it. She stated that she also has one of her coronary arteries block but 25% and that she was told by head orthopedic team physician that she did not need to follow with them anymore. She stated that she has hypertension but could not remember the medication she was on she just remembers that she is on 5 mg. She denies any chest pain, shortness of breathing, palpitation, lightheadedness , dizziness. She has no complaints. Objective Vitals Vital Signs Date Time Temp Pulse Resp B/P (MAP) Pulse Ox O2 Delivery O2 Flow Rate FiO2 07/26/17 18:32 98.4 82 18 133/73 (93) 96 Objective Remarks GENERAL: in NAD NECK: Supple, trachea midline. No JVD or lymphadenopathy. CARDIOVASCULAR: Regular rate and rhythm without murmurs, gallops, or rubs. RESPIRATORY: Breath sounds equal bilaterally. No accessory muscle use. GASTROINTESTINAL: Abdomen soft, non-tender, nondistended. PSYCH: Flat affect. Medications and IVs Current Medications Lorazepam (Ativan) 1 mg Q6H PRN PO MODERATE TO SEVERE ANXIETY; Start 07/26/17 at 18:00 Lorazepam (Ativan Inj) 1 mg Q6H PRN IM MODERATE TO SEVERE ANXIETY; Start 07/26 at 18:00 Lorazepam (Ativan) 0.5 mg Q12H PRN PO MODERATE TO SEVERE ANXIETY; Start at 17:45; Status UNV Lorazepam (Ativan Inj) 0.5 mg Q12H PRN IM MODERATE TO SEVERE ANXIETY; Start at 17:45; Status UNV Diphenhydramine HCl (Benadryl) 50 mg HS PRN PO INSOMNIA; Start 07/26/17 at 21: 00 Acetaminophen (Tylenol) 650 mg Q4H PRN PO Pain 1-5 or Temp >101F; Start at 18:00 Magnesium Hydroxide (Milk Of Magnesia Liq) 30 ml DAILY PRN PO CONSTIPATION; Start 07/26/17 at 18:00 Al Hydrox/Mg Hydrox/Simethicone (Mag-Al Plus Susp Liq) 30 ml Q6H PRN PO DYSPEPSIA; Start 07/26/17 at 18:00 Nicotine (Habitrol 21 Mg Patch.24 Hr) 1 patch DAILY T-DERMAL ; Start 07/27/17 at 09:00 Miscellaneous Information 1 DAILY T-DERMAL ; Start 07/27/17 at 09:00 Lurasidone HCl (Latuda) 20 mg DAILY PO ; Start 07/27/17 at 09:45 Miscellaneous (Pill Splitter) 1 ea UNSCH PRN OTHER SEE LABEL COMMENTS; Start 07/27/17 at 11:45 A/P Assessment and Plan intentional suicidal overdose with lexapro on 07/25/17 -Being managed by inpatient psychiatrist team. ekg LBBB -Per patient she is aware of this and she is also asymptomatic. -No acute issues at the moment regards to this. Questionable hypertension -At the moment she is normotensive. She might have had a history of hypertension but would not start any medication if her blood pressure is normal. Beryl Bonilla MD Jul 27, 2017 16:51
[2017-07-27 18:00] VITALS: BP 145/88; PULSE 76; RESP 16; TEMP 98.2; O2SAT 97
[2017-07-27 21:13] LABS: AUTOMATED NEUTROPHIL # 8.9 TH/MM3 (1.8-7.7); BASOPHIL % 0.3 % (0.0-2.0); EOSINOPHIL # 0.1 TH/MM3 (0-0.4); EOSINOPHIL % 0.5 % (0.0-4.0); HEMATOCRIT 37.6 % (35.0-46.0); HEMO FLAGS DIFF FINAL; LYMPH % 18.4 % (9.0-44.0); LYMPHOCYTE # 2.2 TH/MM3 (1.0-4.8); MEAN CELL VOLUME 86.7 FL (80.0-100.0); MEAN CORPUSCULAR HEMOGLOBIN 28.6 PG (27.0-34.0); MONO % 5.4 % (0.0-8.0); NEUT % 75.4 % (16.0-70.0); PLATELET COUNT 202 TH/MM3 (150-450); RED BLOOD COUNT 4.34 MIL/MM3 (4.00-5.30); RED CELL DISTRIBUTION WIDTH 14.8 % (11.6-17.2); WHITE BLOOD COUNT 11.7 TH/MM3 (4.0-11.0)
[2017-07-27 21:30] LABS: ANION GAP 8 MEQ/L (5-15); AST (GOT) 8 U/L (15-37); BICARBONATE 28.7 MEQ/L (21.0-32.0); BLOOD UREA NITROGEN 12 MG/DL (7-18); CHLORIDE 102 MEQ/L (98-107); GLOMERULAR FILTRATION RATE 103 ML/MIN (>89); POTASSIUM 3.5 MEQ/L (3.5-5.1); SODIUM (NA) 139 MEQ/L (136-145)
[2017-07-27 21:31] LABS: ALT (GPT) 15 U/L (10-53)
[2017-07-27 21:41] LABS: ALKALINE PHOSPHATASE 74 U/L (45-117); HDL CHOLESTEROL 53.8 MG/DL (40.0-60.0); LDL CHOLESTEROL 121 MG/DL (0-99); TOTAL BILIRUBIN ADULT 0.2 MG/DL (0.2-1.0)
[2017-07-27 22:26] LABS: HEMOGLOBIN LA1C 1.4 %; HEMOGLOBIN P3 2.3 %
[2017-07-27 22:31] LABS: HEMOGLOBIN A1a 0.8 %; HEMOGLOBIN A1b 1.3 %
[2017-07-28 05:11] VITALS: BP 132/66; PULSE 70; RESP 16; TEMP 98.2; O2SAT 98
[2017-07-28] MEDS: LURASIDONE 40 MG TAB PO SCH (07:36)
[2017-07-28] MEDS: NICOTINE 21 MG/24 HR PATCH T-DERMAL SCH (07:47)
[2017-07-28] MEDS: REMOVE OLD PATCH T-DERMAL SCH (08:37)
--- NOTE | 2017-07-28 12:50 | HHI.PYPN ---
Subjective Remarks Patient is seen for follow-up, chart reviewed. Patient found lying in hospital bed, cooperative. Patient to be slightly more engaging today and more reactive. Patient states that she is feeling "okay" but had difficulty with sleep last night and feeling very tired today. Patient states that she had intended to some groups and activities yesterday where she enjoyed. Patient reports that it was "having anxiety" and states that it may be due to her not having not slept well last night. She continues to report feeling sad and depressed, and continues to have suicidal ideations today. Patient reports tolerating medication well yesterday and plans to continue treatment. Chief Complaint: recent suicide attempt via overdose on Lexapro Review of Systems Except as stated in HPI: all other systems reviewed are Neg Mental Status Examination Appearance: Appropriate Consciousness: Alert Orientation: Person, Place, Date/Time Speech: Unremarkable Language: Adequate Fund of Knowledge: Adequate Attention and Concentration: Adequate Memory: Impaired (events surrounding recent overdose) Mood: Sad Affect: Sad Thought Process & Associations: Logical, Linear Thought Content: Appropriate Hallucination Type: None Delusion Type: None Suicidal Ideation: Yes Suicidal Plan: No Suicidal Intention: No Homicidal Ideation: No Homicidal Plan: No Homicidal Intention: No Insight: Poor Judgment: Impulsive Results Labs Test 07/27/17 20:50 White Blood Count 11.7 TH/MM3 Red Blood Count 4.34 MIL/MM3 Hemoglobin 12.4 GM/DL Hematocrit 37.6 % Mean Corpuscular Volume 86.7 FL Mean Corpuscular Hemoglobin 28.6 PG Mean Corpuscular Hemoglobin Concent 33.0 % Red Cell Distribution Width 14.8 % Platelet Count 202 TH/MM3 Mean Platelet Volume 10.6 FL Neutrophils (%) (Auto) 75.4 % Lymphocytes (%) (Auto) 18.4 % Monocytes (%) (Auto) 5.4 % Eosinophils (%) (Auto) 0.5 % Basophils (%) (Auto) 0.3 % Neutrophils # (Auto) 8.9 TH/MM3 Lymphocytes # (Auto) 2.2 TH/MM3 Monocytes # (Auto) 0.6 TH/MM3 Eosinophils # (Auto) 0.1 TH/MM3 Basophils # (Auto) 0.0 TH/MM3 CBC Comment DIFF FINAL Differential Comment Blood Urea Nitrogen 12 MG/DL Creatinine 0.71 MG/DL Random Glucose 125 MG/DL Total Protein 7.1 GM/DL Albumin 3.1 GM/DL Calcium Level 9.0 MG/DL Alkaline Phosphatase 74 U/L Aspartate Amino Transf (AST/SGOT) 8 U/L Alanine Aminotransferase (ALT/SGPT) 15 U/L Total Bilirubin 0.2 MG/DL Sodium Level 139 MEQ/L Potassium Level 3.5 MEQ/L Chloride Level 102 MEQ/L Carbon Dioxide Level 28.7 MEQ/L Anion Gap 8 MEQ/L Estimat Glomerular Filtration Rate 103 ML/MIN Hemoglobin A1c 6.4 % Triglycerides Level 86 MG/DL Cholesterol Level 192 MG/DL LDL Cholesterol 121 MG/DL HDL Cholesterol 53.8 MG/DL Cholesterol/HDL Ratio 3.56 RATIO Thyroid Stimulating Hormone 3rd Gen 2.540 uIU/ML Vitals/IOs Vital Signs Date Time Temp Pulse Resp B/P (MAP) Pulse Ox O2 Delivery O2 Flow Rate FiO2 07/28/17 05:11 98.2 70 16 132/66 (88) 98 Assessment & Plan Problem List: (1) Bipolar disorder, current episode depressed, severe, without psychotic features ICD Codes: F31.4 - Bipolar disorder, current episode depressed, severe, without psychotic features Assessment & Plan Patient continues to have depressed mood along with having suicide ideations but noted to be slightly more engaging interview today. Patient hasn't been able to comply with treatment which started yesterday. Will continue current treatment for now with upward titration as needed. Continue to encourage patient to maintain personal hygiene and participate in groups and activities on the unit. She was planning in progress Justification for Cont. Inpt. At risk for further decompensation event lower level of care Discharge Planning Patient once psychiatric stable and may return back to son's home but unclear at this time. Kike Oro MD Jul 28, 2017 12:50
[2017-07-28 16:42] VITALS: BP 119/61; PULSE 74; RESP 17; TEMP 97.8; O2SAT 98
[2017-07-28] MEDS: diphenhydrAMINE HCL 50 MG CAP PO SCH (21:00)
[2017-07-29 05:37] VITALS: BP 133/72; PULSE 78; RESP 16; TEMP 98.6; O2SAT 96
[2017-07-29] MEDS: LURASIDONE 40 MG TAB PO SCH (08:27)
[2017-07-29] MEDS: NICOTINE 21 MG/24 HR PATCH T-DERMAL SCH (08:42)
--- NOTE | 2017-07-29 13:08 | HHI.PYPN ---
Subjective Remarks Patient seen for follow up, chart reviewed. Discussion with nursing staff stated the patient continues to be noted to have blunted affect, and isolative in her room. Patient found lying in hospital bed, cooperative today. Patient reports having slept well but states that she continues to feel tired. Patient states that her mood today is "not happy" stating that she had taken about having done much better last year and recalling being happy. Patient is unable to express differences from last year and this year but was able to express her goals. Patient states that she wants to get better, for herself, be more independent. Patient stated he spoke with her son yesterday when he came to visit she felt went well. Patient continues to have vague suicidal ideations at this time. Chief Complaint: recent suicide attempt via overdose on Lexapro Review of Systems Except as stated in HPI: all other systems reviewed are Neg Mental Status Examination Appearance: Appropriate Consciousness: Alert Orientation: Person, Place, Date/Time Speech: Unremarkable Language: Adequate Fund of Knowledge: Adequate Attention and Concentration: Adequate Memory: Impaired (events surrounding recent overdose) Mood: Sad Affect: Sad Thought Process & Associations: Logical, Linear Thought Content: Appropriate Hallucination Type: None Delusion Type: None Suicidal Ideation: Yes Suicidal Plan: No Suicidal Intention: No Homicidal Ideation: No Homicidal Plan: No Homicidal Intention: No Insight: Poor Judgment: Impulsive Results Vitals/IOs Vital Signs Date Time Temp Pulse Resp B/P (MAP) Pulse Ox O2 Delivery O2 Flow Rate FiO2 07/29/17 05:37 98.6 78 16 133/72 (92) 96 Assessment & Plan Problem List: (1) Bipolar disorder, current episode depressed, severe, without psychotic features ICD Codes: F31.4 - Bipolar disorder, current episode depressed, severe, without psychotic features Assessment & Plan Patient continues to report depressed mood, and suicidality. Patient noted to be sleeping better. We will increase the resident 40 mg by mouth daily for mood stabilization. Continue rest of medications. Discharge planning in progress Justification for Cont. Inpt. At risk for further decompensation if at lower level of care Discharge Planning Unclear where patient will be returning once patient was stable. Kike Oro MD Jul 29, 2017 13:08
[2017-07-29] MEDS: diphenhydrAMINE HCL 50 MG CAP PO SCH (20:19)
[2017-07-30 05:32] VITALS: BP 116/68; PULSE 78; RESP 16; TEMP 98.1; O2SAT 96
[2017-07-30] MEDS: LURASIDONE 40 MG TAB PO SCH (08:14)
--- NOTE | 2017-07-30 14:27 | HHI.PR ---
Subjective Remarks Follow-up for questionable hypertension Patient seen during visitation hours. Her daughter is present during the interview. She stated that patient was on lisinopril. Patient has no complaints. Deny any chest pain, soreness of breathing, palpitation, lightheadedness/dizziness. Should concerns. Objective Vitals Vital Signs Date Time Temp Pulse Resp B/P (MAP) Pulse Ox O2 Delivery O2 Flow Rate FiO2 07/30/17 05:32 98.1 78 16 116/68 84 96 Result Diagram: 07/27/17204907/27/172049 Objective Remarks GENERAL: in NAD NECK: Supple, trachea midline. No JVD or lymphadenopathy. CARDIOVASCULAR: Regular rate and rhythm without murmurs, gallops, or rubs. RESPIRATORY: Breath sounds equal bilaterally. No accessory muscle use. GASTROINTESTINAL: Abdomen soft, non-tender, nondistended. PSYCH: Flat affect. Medications and IVs Current Medications Lorazepam (Ativan) 1 mg Q6H PRN PO MODERATE TO SEVERE ANXIETY; Start 07/26/17 at 18:00 Lorazepam (Ativan Inj) 1 mg Q6H PRN IM MODERATE TO SEVERE ANXIETY; Start 07/26 at 18:00 Lorazepam (Ativan) 0.5 mg Q12H PRN PO MODERATE TO SEVERE ANXIETY; Start at 17:45; Status UNV Lorazepam (Ativan Inj) 0.5 mg Q12H PRN IM MODERATE TO SEVERE ANXIETY; Start at 17:45; Status UNV Diphenhydramine HCl (Benadryl) 50 mg HS PRN PO INSOMNIA; Start 07/26/17 at 21: 00; Stop 07/28/17 at 16:19; Status DC Acetaminophen (Tylenol) 650 mg Q4H PRN PO Pain 1-5 or Temp >101F; Start at 18:00 Magnesium Hydroxide (Milk Of Magnesia Liq) 30 ml DAILY PRN PO CONSTIPATION; Start 07/26/17 at 18:00 Al Hydrox/Mg Hydrox/Simethicone (Mag-Al Plus Susp Liq) 30 ml Q6H PRN PO DYSPEPSIA; Start 07/26/17 at 18:00 Nicotine (Habitrol 21 Mg Patch.24 Hr) 1 patch DAILY T-DERMAL ; Start 07/27/17 at 09:00; Stop 07/29/17 at 09:19; Status DC Miscellaneous Information 1 DAILY T-DERMAL Last administered on 07/28/17 08: 37; Start 07/27/17 at 09:00; Stop 07/29/17 at 09:19; Status DC Lurasidone HCl (Latuda) 20 mg DAILY PO Last administered on 07/29/17 08:27; Start 07/27/17 at 09:45; Stop 07/29/17 at 13:05; Status DC Miscellaneous (Pill Splitter) 1 ea UNSCH PRN OTHER SEE LABEL COMMENTS; Start 07/27/17 at 11:45 Diphenhydramine HCl (Benadryl) 50 mg HS PO Last administered on 07/29/17 20: 19; Start 07/28/17 at 16:30 Lurasidone HCl (Latuda) 40 mg DAILY PO Last administered on 07/30/17 08:14; Start 07/30/17 at 09:00 A/P Assessment and Plan intentional suicidal overdose with lexapro on 07/25/17 -Being managed by inpatient psychiatrist team. ekg LBBB -Per patient she is aware of this and she is also asymptomatic. -No acute issues at the moment regards to this. Questionable hypertension -Blood pressure reviewed and patient continues to be normotensive. Most likely is probably diet control since she is on heart healthy diet. -At the moment I will not start any antihypertensive medication. Patient to follow up as outpatient. Discharge Planning Patient is medically stable. Please call for any concerns. Will follow PRN. Beryl Bonilla MD Jul 30, 2017 14:27
--- NOTE | 2017-07-30 14:48 | HHI.PYPN ---
Subjective Remarks Patient was seen and case discussed with nursing. Patient notices a slight improvement in mood. Today is a 5 out of 10. She does remain depressed but denies suicidal or homicidal thoughts ideations or plan. Affect is blunted. She is visiting with her sister. Tolerating medications well Chief Complaint: recent suicide attempt via overdose on Lexapro Mental Status Examination Appearance: Appropriate Consciousness: Alert Orientation: Person, Place, Date/Time Speech: Unremarkable Language: Adequate Fund of Knowledge: Adequate Attention and Concentration: Adequate Memory: Impaired (events surrounding recent overdose) Mood: Sad Affect: Blunt Thought Process & Associations: Logical, Linear Thought Content: Appropriate Hallucination Type: None Delusion Type: None Suicidal Ideation: Yes Suicidal Plan: No Suicidal Intention: No Homicidal Ideation: No Homicidal Plan: No Homicidal Intention: No Insight: Poor Judgment: Impulsive Results Vitals/IOs Vital Signs Date Time Temp Pulse Resp B/P (MAP) Pulse Ox O2 Delivery O2 Flow Rate FiO2 07/30/17 05:32 98.1 78 16 116/68 (08) 96 Assessment & Plan Problem List: (1) Bipolar disorder, current episode depressed, severe, without psychotic features ICD Codes: F31.4 - Bipolar disorder, current episode depressed, severe, without psychotic features Assessment & Plan Continue current treatment plan Justification for Cont. Inpt. Patient would decompensate in a less restrictive setting Enoch Crawford DO Jul 30, 2017 14:48
[2017-07-30 18:00] VITALS: BP 130/67; PULSE 82; RESP 18; TEMP 98.4; O2SAT 98
[2017-07-30] MEDS: diphenhydrAMINE HCL 50 MG CAP PO SCH (21:00)
[2017-07-31 05:38] VITALS: BP 99/64; PULSE 86; RESP 16; TEMP 97.8; O2SAT 94
[2017-07-31] MEDS: LURASIDONE 40 MG TAB PO SCH (08:29)
--- NOTE | 2017-07-31 12:19 | HHI.PYPN ---
Subjective Remarks Patient was seen and case discussed with nursing. Patient is pleasant and cooperative with exam. Her affect is is improving with an increased range. Had a good visit yesterday family. Mood today 6 out of 10. Denies suicidal or homicidal ideations thought intent or plan. Tolerating medications well Chief Complaint: recent suicide attempt via overdose on Lexapro Mental Status Examination Appearance: Appropriate Consciousness: Alert Orientation: Person, Place, Date/Time Speech: Unremarkable Language: Adequate Fund of Knowledge: Adequate Attention and Concentration: Adequate Memory: Impaired (events surrounding recent overdose) Mood: Sad Affect: Blunt Thought Process & Associations: Logical, Linear Thought Content: Appropriate Hallucination Type: None Delusion Type: None Suicidal Ideation: Yes Suicidal Plan: No Suicidal Intention: No Homicidal Ideation: No Homicidal Plan: No Homicidal Intention: No Insight: Poor Judgment: Impulsive Results Vitals/IOs Vital Signs Date Time Temp Pulse Resp B/P (MAP) Pulse Ox O2 Delivery O2 Flow Rate FiO2 07/31/17 05:38 97.8 86 16 99/64 (92) 94 Assessment & Plan Problem List: (1) Bipolar disorder, current episode depressed, severe, without psychotic features ICD Codes: F31.4 - Bipolar disorder, current episode depressed, severe, without psychotic features Assessment & Plan Continue current treatment plan Justification for Cont. Inpt. Patient will decompensate in a less restrictive setting Enoch Crawford DO Jul 31, 2017 12:19
[2017-07-31 16:58] VITALS: BP 133/83; PULSE 82; RESP 18; TEMP 98; O2SAT 98
[2017-07-31] MEDS: diphenhydrAMINE HCL 50 MG CAP PO SCH (20:31)
[2017-08-01 06:11] VITALS: BP 109/69; PULSE 100; RESP 15; TEMP 98; O2SAT 96
[2017-08-01] MEDS: LURASIDONE 40 MG TAB PO SCH (08:34)
--- NOTE | 2017-08-01 17:14 | HHI.PYPN ---
Subjective Remarks Patient seen for follow, chart review. Patient found lying in hospital bed, cooperative. Patient states that this weekend went "alright" but reports feeling tired and occasionally sad. She states that she had gone to some of the groups activities and that her mood in general has been "trying to get better, getting there... Better". Patient denies any suicidality recently. Patient states that she was visited by her sister and her son which she states went well. Patient states that she plans on staying with her sister or her son upon discharge, reports wanting to do some volunteer work and plans on taking care of herself more. Chief Complaint: recent suicide attempt via overdose on Lexapro Review of Systems Except as stated in HPI: all other systems reviewed are Neg Mental Status Examination Appearance: Appropriate Consciousness: Alert Orientation: Person, Place, Date/Time Speech: Unremarkable Language: Adequate Fund of Knowledge: Adequate Attention and Concentration: Adequate Memory: Impaired (events surrounding recent overdose) Mood: Sad (slightly less today) Affect: Other (restricted) Thought Process & Associations: Logical, Linear Thought Content: Appropriate Hallucination Type: None Delusion Type: None Suicidal Ideation: Yes Suicidal Plan: No Suicidal Intention: No Homicidal Ideation: No Homicidal Plan: No Homicidal Intention: No Insight: Poor Judgment: Impulsive Results Vitals/IOs Vital Signs Date Time Temp Pulse Resp B/P (MAP) Pulse Ox O2 Delivery O2 Flow Rate FiO2 08/01/17 06:11 98.0 100 15 109/69 (82) 96 Assessment & Plan Problem List: (1) Bipolar disorder, current episode depressed, severe, without psychotic features ICD Codes: F31.4 - Bipolar disorder, current episode depressed, severe, without psychotic features Assessment & Plan Patient continues to appear depressed although with more affect today and may be lessening. Patient denies any suicidality at this time. We'll increase trazodone to 60 mg by mouth daily. Continue to monitor mood and behavior. Continue to encourage participation in groups and activities while on the unit. Discharge planning in progress Justification for Cont. Inpt. At risk for further decompensation if at lower level of care. Discharge Planning Patient states she may return to live with sister and son alternatively once psychiatrically stable. Kike Oro MD Aug 01, 2017 17:14
[2017-08-01 17:38] VITALS: BP 129/63; PULSE 90; RESP 18; TEMP 98.2; O2SAT 96
[2017-08-01] MEDS: diphenhydrAMINE HCL 50 MG CAP PO SCH (20:43)
[2017-08-02 06:04] VITALS: BP 125/84; PULSE 93; RESP 16; TEMP 98.2; O2SAT 98
[2017-08-02] MEDS: LURASIDONE 40 MG TAB PO SCH (08:39)
[2017-08-02 13:40] VITALS: BP 130/79; PULSE 103; RESP 20; TEMP 97.7; O2SAT 98
[2017-08-02 15:45] VITALS: BP 121/59; PULSE 79; RESP 17; TEMP 97.7; O2SAT 100
--- NOTE | 2017-08-02 16:20 | HHI.PYPN ---
Subjective Remarks Patient seen for follow, chart review. Patient found participating in groups and activities today. Patient states that she continues to have some feelings of feeling depressed but are less so as well as occasional suicidal ideation a less frequent and less duration and with less intense. Possible discharge for tomorrow was discussed this patient reported with having improved mood and less suicidality recently and states that she feels more safe to be able to go home and on this current regimen. Patient states she plans on living with her sister or her son, and plans on continuing treatment as well as mentioning wanting to some volunteer work to keep herself active. Chief Complaint: recent suicide attempt via overdose on Lexapro Review of Systems Except as stated in HPI: all other systems reviewed are Neg Mental Status Examination Appearance: Appropriate Consciousness: Alert Orientation: Person, Place, Date/Time Speech: Unremarkable Language: Adequate Fund of Knowledge: Adequate Attention and Concentration: Adequate Memory: Impaired (events surrounding recent overdose) Mood: Sad (slightly less today) Affect: Sad (with slightly more affect today) Thought Process & Associations: Logical, Linear Thought Content: Appropriate Hallucination Type: None Delusion Type: None Suicidal Ideation: Yes (less so today) Suicidal Plan: No Suicidal Intention: No Homicidal Ideation: No Homicidal Plan: No Homicidal Intention: No Insight: Poor (but improving) Judgment: Impulsive Results Vitals/IOs Vital Signs Date Time Temp Pulse Resp B/P (MAP) Pulse Ox O2 Delivery O2 Flow Rate FiO2 08/02/17 13:40 97.7 103 20 130/79 (96) 98 Assessment & Plan Problem List: (1) Bipolar disorder, current episode depressed, severe, without psychotic features ICD Codes: F31.4 - Bipolar disorder, current episode depressed, severe, without psychotic features Assessment & Plan Patient this time and noted with improvement of mood and decrease in suicidal ideations. We'll continue current treatment as patient responding well. Patient likely for discharge tomorrow if patient continues to do well. Discharge planning in progress Justification for Cont. Inpt. At risk for further decompensation if at lower level of care Discharge Planning Patient likely be discharged back to her sister or her son's home. Kike Oro MD Aug 02, 2017 16:20
[2017-08-02 18:19] VITALS: BP 121/59; PULSE 79; RESP 17; TEMP 97.7; O2SAT 100
[2017-08-02] MEDS: diphenhydrAMINE HCL 50 MG CAP PO SCH (20:09)
[2017-08-02 22:01] VITALS: BP 127/63; PULSE 70; RESP 16; TEMP 98; O2SAT 98
[2017-08-03 06:21] VITALS: BP 130/73; PULSE 91; RESP 18; TEMP 97.7; O2SAT 99
[2017-08-03] MEDS: LURASIDONE 40 MG TAB PO SCH (08:36)
[2017-08-03] MEDS ORDERED: DIPH50CA PO (12:07)
[2017-08-03] MEDS ORDERED: LURA1TAB2 PO (12:07)
--- NOTE | 2017-08-03 16:43 | HHI.DS ---
Psychiatry Discharge Summary Inpatient Psychiatric care?: Yes Advance Directive: No Reason Not Provided: none Mental Health AdvanceDirective: No Health Care Proxy: No Admission Admission Date Jul 26, 2017 at 15:55 Admission Diagnosis: (1) Bipolar disorder, current episode depressed, severe, without psychotic features ICD Code: F31.4 - Bipolar disorder, current episode depressed, severe, without psychotic features Brief History Patient is a 57 y/o woman, , domicile recently with son , unemployed with a past psychiatric history of depression versus bipolar disorder, no previous psychiatric hospitalizations when recent suicide attempt via overdose who was taken to [facility] after having overdosed on Lexapro after conflict with ex- which she was then transferred to the inpatient psychiatry for further evaluation and management. Patient found lying in hospital bed, superficially cooperative interview. Patient states that she had been living with some people from her [facility] previously and on and off with her sister and then her son. Patient states that she recalls taking an overdose of Xanax recently and upon discharge did not keep follow-up appointment. Patient states that she recently took several tablets of her Lexapro which she was prescribed after her last medical hospitalization and reports not recalling the events surrounding her overdose and she states waking up in the hospital. Patient states that she did not know what to expect after she overdosed recently and did not know how to feel after she had woken up in the hospital neither reporting regret nor happy to have survived. Patient reports that recently she had been having decreased sleep, appetite, energy, concentration, feeling sad and depressed since June with feelings of helplessness and hopelessness along with suicidal ideations. Patient was able to elaborate on when she started having suicide ideations, intensity and duration and frequency. Patient states that her recent current stressors include financial difficulty and her current unstable living situation. When asked about recent report of patient having had discord with ex- patient denied. Collateral contact: Janusz (son). Psychiatric family history: Denies Past psychiatric history: diagnosis of depression versus bipolar disorder per patient, no previous psychiatric hospitalizations, one recent previous suicide attempt via overdose on Xanax. Previous psychiatric medications: Lexapro prescribed during her last medical hospitalization after her previous suicide attempt via overdose on Xanax. Substance use disorder: Denies Past medical history: Hypertension Allergies: Sulfas Social history: , recently living with son, has 3 children, unemployed, highest education is high school, tenriism: [employer]. Tobacco Use In Past 30 Days: No Tobacco Past 30 Days Alcohol Use: Never Hospital Course Patient is a 57 y/o woman, , domicile recently with son , unemployed with a past psychiatric history of depression versus bipolar disorder, no previous psychiatric hospitalizations when recent suicide attempt via overdose who was taken to [facility] after having overdosed on Lexapro after conflict with ex- which she was then transferred to the inpatient psychiatry for further evaluation and management. Patient was admitted to the inpatient psychiatry unit where he was started on lurasidone 20mg PO daily and titrated up to 60mg PO daily which she tolerated well. Patient continued to have improvement of mood, denied any recurrence of suicidal ideation and was noted to be less seclusive and participatory in groups and activities on the unit. Upon discharge patient stated feeling good , noted to be future-oriented and motivated to continue treatment and outpatient follow-up for continuity of care. Patient denies SI, HI, AVH or delusions. Supportive psychotherapy provided. Patient advised to return to ED or call 911 in case of emergency. Patient agrees with plan. Results Blood Pressure 130 / 73 Vital Signs Date Time Temp Pulse Resp B/P (MAP) Pulse Ox O2 Delivery O2 Flow Rate FiO2 08/03/17 06:21 97.7 91 18 130/73 (92) 99 Laboratory Results Test 07/27/17 20:50 Cholesterol Level 192 MG/DL (120-200) HDL Cholesterol 53.8 MG/DL (40.0-60.0) Hemoglobin A1c 6.4 % (4.3-6.0) LDL Cholesterol 121 MG/DL (0-99) Triglycerides Level 86 MG/DL (42-150) Summary of Procedures none Pending results at discharge: No Medications # of Antipsychotic meds at D/C: 1 Approp Antipsych med options 1 - Minimum of three failed multiple trials of monotherapy. 2 - Documented plan to taper to monotherapy due to previous use of multiple meds OR cross-taper in progress at D/C. 3 - Documentation of augmentation of Clozapine. 4 - Justification other than those listed in allowable values 1-3, document here : Discharge Discharge Date: Aug 03, 2017 Discharge Diagnosis: (1) Bipolar disorder, current episode depressed, severe, without psychotic features Diagnosis: Principal ICD Code: F31.4 - Bipolar disorder, current episode depressed, severe, without psychotic features Pt Condition on Discharge: Stable Discharge Disposition: Discharge Home Discharge Instructions Diet Instructions: Heart Healthy Diet Activities you can perform: Regular-No Restrictions Scheduled Appointment: [facility] Discharge Time > 30 minutes Mental Status Examination Appearance: Appropriate Consciousness: Alert Orientation: Person, Place, Date/Time Speech: Unremarkable Language: Adequate Fund of Knowledge: Adequate Attention and Concentration: Adequate Memory: Unremarkable Mood: Appropriate Affect: Appropriate, Sad (with slightly more affect today) Thought Process & Associations: Logical, Goal directed, Linear Thought Content: Appropriate Hallucination Type: None Delusion Type: None Suicidal Ideation: No Suicidal Plan: No Suicidal Intention: No Homicidal Ideation: No Homicidal Plan: No Homicidal Intention: No Insight: Fair Judgment: Adequate Discharge/Advance Care Plan Health Problems: (1) Bipolar disorder, current episode depressed, severe, without psychotic features Goals to promote your health * To prevent worsening of your condition and complications * To maintain your health at the optimal level Directions to meet your goals Take your medications as prescribed Follow your dietary instruction Follow activity as directed Keep your appointments as scheduled Take your immunizations and boosters as scheduled If your symptoms worsen call your PCP, if no PCP go to Urgent Care Center or Emergency Room For 09/05 questions related to your inpatient stay or results of tests pending at discharge, please contact Dr. Kike Oro at Smoking is Dangerous to Your Health. Avoid second hand smoking Kike Oro MD Aug 03, 2017 16:43
== END 2017-08-03 13:25 | disposition home or self-care (01) | DRG 885 ==
LOC: H260 15:55
PROVIDERS: ADMIT Student in an Organized Health Care Education/Training Program; ATTEND Student in an Organized Health Care Education/Training Program
DX: F31.4 Bipolar disorder, current episode depressed, severe, without psychotic features (principal); R45.851 Suicidal ideations; F41.9 Anxiety disorder, unspecified; K21.9 Gastro-esophageal reflux disease without esophagitis; I44.7 Left bundle-branch block, unspecified; Z91.5 Personal history of self-harm
CPT/HCPCS: 80053; 80061; 83036; 84443; 85025; 93005; Q0163